=== PATIENT | male | born 1995 | race Caucasian/White ===

== ENCOUNTER 2019-08-14 23:17 | Emergency (ER) | payer OTHER ==
[~2019-08-14] VITALS: Ht 162.6 cm; Wt 54.4 kg
--- NOTE | 2019-08-14 23:17 | NUR ---
2315- PT WHEELCHAIRED TO BED #4
[2019-08-14 23:26] VITALS: BP 133/81
--- NOTE | 2019-08-14 23:30 | NUR ---
24 Y/O MALE PRESENTS TO ED. C/O BODYACHES AND HEADACHE THAT STARTED THIS MORNING. PT STATES PAIN IS WORSENING, 03/02. NO MEDICATIONS TAKEN PRIOR COMING TO ED. PT HAS FEVER, 102.4 TEMP ORAL DURING TRIAGE. PT C/O NAUSEA AND VOMITING. DENIES ANY DIARRHEA. ERMD MADE AWARE. WILL CONTINUE TO MONITOR.
--- NOTE | 2019-08-14 23:30 | NUR ---
NASAL FLU SWAB OBTAINED
[2019-08-14 23:55] LABS: HEMATOCRIT 43.9 % (36-52); HEMOGLOBIN 15.4 g/dL (12.0-18.0); MEAN CORPUSCULAR HEMOGLOBIN 32 pg (27-31); MEAN CORPUSCULAR HGB CONC 35 g/dL (33-37); MEAN CORPUSCULAR VOLUME 90.8 fL (80-94); PLATELET COUNT (AUTO) 161 K/uL (140-450); RED BLOOD CELL COUNT(AUTO) 4.83 MIL/uL (4.20-6.10); RED CELL DISTRIBUTION WIDTH 13.2 % (11.6-13.7); WHITE BLOOD COUNT (AUTO) 9.7 K/uL (4.8-10.8)
--- NOTE | 2019-08-14 23:58 | NUR ---
URINE COLLECTED AND SENT TO LAB
[2019-08-15] MEDS: ONDANSETRON 4 MG/2 ML VIAL IVP ONE
[2019-08-15] MEDS: KETOROLAC 30 MG/ML VIAL IVP ONE (00:01)
[2019-08-15 00:05] LABS: APPEARANCE,URINE CLEAR (CLEAR); BILIRUBIN,URINE NEGATIVE (NEGATIVE); BLOOD, URINE NEGATIVE (NEGATIVE); COLOR,URINE YELLOW (YELLOW); LEUKOCYTE ESTERASE ,URINE NEGATIVE (NEGATIVE); NITRITE, URINE NEGATIVE (NEGATIVE); UGLUCOSE NEGATIVE (NEGATIVE)
[2019-08-15 00:19] LABS: LYMPHOCYTES % (MANUAL) 7 % (20-46); MONOCYTES % (MANUAL) 5 % (5-12)
[2019-08-15 00:20] LABS: ALBUMIN 3.9 g/dL (3.4-5.0); ANION GAP 13.4 (8-16); CARBON DIOXIDE 27.2 mmol/L (21-32); POTASSIUM 3.6 mmol/L (3.5-5.1); TOTAL BILIRUBIN 0.4 mg/dL (0.0-1.0)
[2019-08-15 00:24] LABS: RBC,URINE 0-5 /HPF (0-5); WBC,URINE 0-5 /HPF (0-5)
[2019-08-15] MEDS: NACL 0.9% 1,000 ML IV ONE ×2 (01:49)
[2019-08-15] MEDS: ACETAMINOPHEN EXTRA STRENGTH 500 MG TAB PO ONE (01:51)
--- NOTE | 2019-08-15 01:51 | NUR ---
PT REMEDICATED FOR FEVER
[2019-08-15 02:24] VITALS: BP 125/80
--- NOTE | 2019-08-15 03:07 | NUR ---
ORAL TEMP 100.4. DX - VIRAL GASTROENTERITIS. ACI WITH RX GIVEN TO PT. PT DISCHARGED HOME TO FOLLOW UP WITH PMD.
--- NOTE | 2019-08-17 07:19 | NUR ---
Late entry. COnfirmed with RN that 0.9NS IV completed at 0300
== END 2019-08-15 03:07 | disposition home or self-care (01) ==
LOC: MED 23:17
DX: B34.9 Viral infection, unspecified (principal); J45.909 Unspecified asthma, uncomplicated
CPT/HCPCS: 36415; 80053; 81001; 82150; 83690; 85025; 87804; 96361; 96374; 96375; 99284; J1885; J2405; J7030